=== PATIENT | female | born 1985 | race Caucasian/White ===

== ENCOUNTER 2017-05-09 15:31 | Outpatient (CLI) | payer BC | END 2017-05-09 15:32 | disposition home or self-care (01) | LOC: LABBT 15:31 | PROVIDERS: ATTEND Neurological Surgery | DX: Z01.818 Encounter for other preprocedural examination (principal); M54.12 Radiculopathy, cervical region ==

== ENCOUNTER 2017-05-16 05:40 | Day surgery (SDC) | payer BC ==
[2017-05-09 16:05] VITALS: BMI 26.6
--- NOTE | 2017-05-16 05:58 | HP ---
HISTORY OF PRESENT ILLNESS: Ms. Hernandez is a pleasant 31-year-old woman who presents for evaluation of a right C7 radiculopathy that began in mid February without any obvious inciting event. She has an M RI from [facility] that reveals superiorly migrated disk to the right at C6-C7 which fits her p athology. She was concerned over right-sided tricep and polo coach weakness that has not improved. She h as had [address] Carias, which have improved her pain tremendously. PAST MEDICAL HISTORY: Reflux, stomach ulcer. ALLERGIES: No known drug allergies. CURRENT MEDICATIONS: None. PHYSICAL EXAMINAITON: Patient is alert and oriented x3. Gait is normal, no ataxia. Upper extremit y motor exam, normal, symmetrical strength in all upper extremity movements other than the right tri cep, which grades 4/5. Reflexes are equal and present bilaterally at the biceps tendon. ASSESSMENT: Cervical radiculopathy. PLAN: I discussed the C6-C7 ACDF. Dr. Stanley met with the patient, reviewed imaging and advocated f or the same. He explained to the patient the risks, benefits, and alternatives to the procedure. T he patient expressed understanding and would like to move forward with surgery as discussed. I do b elieve the patient is mentally competent and capable of making medical decisions for herself and we will move forward with surgery as planned. Miguel Ángel Arceo PA-C dictating for Dr. Stanley.
[2017-05-16] MEDS ORDERED: Thrombin 5000 UNITS/5 ML VIAL ONE (06:39)
[2017-05-16] MEDS ORDERED: Midazolam HCl 2 mg/2 ml Vial ONE ×2 (06:40→06:54)
[2017-05-16] MEDS ORDERED: Fentanyl 250 MCG/5 ML VIAL ONE (06:54)
[2017-05-16] MEDS ORDERED: Ketorolac Tromethamine 30 MG/ML VIAL ONE (07:05)
[2017-05-16] MEDS ORDERED: Ondansetron HCl/PF 4 MG/2 ML Vial ONE ×2 (07:05→10:39)
[2017-05-16] MEDS ORDERED: Lidocaine 2% PF 10 ML AMP (For Epidural Use) ONE (07:05)
[2017-05-16] MEDS ORDERED: Propofol 200 MG/20 ML VIAL ONE (07:05)
[2017-05-16] MEDS ORDERED: Glycopyrrolate 0.2 MG/ML 5 ML SYRINGE ONE (07:05)
[2017-05-16] MEDS ORDERED: Dexamethasone 20 MG/5 ML VIAL ONE (07:05)
[2017-05-16] MEDS ORDERED: Fentanyl 100 MCG/2 ML VIAL ONE (08:40)
--- NOTE | 2017-05-16 08:53 | OP ---
DATE OF PROCEDURE: 05/16/2017 SURGEON: Ruddy Stanley M.D. MORTGAGE ASSISTANT: Miguel Ángel Arceo PA-C INDICATION: Pain. DIAGNOSIS: Cervical radiculopathy. PROCEDURE: Anterior cervical discectomy and fusion C6-7. ANESTHESIA: General. TECHNIQUE: The patient was brought into the operating room and placed under general anesthesia. Sh e was placed on the table in a supine position. A transverse incision was planned over the lateral aspect of the neck on the right. After prepping and draping and after an appropriate operative paus e, the incision was created. The underlying platysma muscle was identified and incised. A blunt ti ssue plane anterior to the sternocleidomastoid muscle was used to gain access to the prevertebral sp destiny. After identifying the appropriate level with C-arm fluoroscopy, self-retaining retractors were placed. An annulotomy was performed in the C6-7 disk space. All disk material was removed includi ng anterior and posterior osteophytes. We identified a superiorly migrated fragment behind the body of C6 on the right, which was removed. After complete decompression, a 6-mm lordotic PEEK cage pac ked with allograft and autograft material was placed within the interbody space. An anterior cervic al plate was then fashioned to the front of the spine and secured with a total of 4 fixed screws. M idline and lateral structures were inspected and found to be free from significant trauma. The woun d was irrigated. Hemostasis was maintained throughout. The wound was then closed in anatomic layer s and a pressure dressing was applied. There were no known procedural complications.
[2017-05-16] MEDS ORDERED: Acetaminophen/Codeine 30-300mg Tablet ONE (09:43)
== END 2017-05-16 11:15 | disposition home or self-care (01) ==
LOC: SDC 05:40
PROVIDERS: ATTEND Neurological Surgery
PROC: 0RG10A0 Fusion of Cervical Vertebral Joint with Interbody Fusion Device, Anterior Approach, Anterior Column, Open Approach (ICD-10-PCS; principal; 2017-05-16)
DX: M54.12 Radiculopathy, cervical region (principal); J30.2 Other seasonal allergic rhinitis; K21.9 Gastro-esophageal reflux disease without esophagitis; Z79.3 Long term (current) use of hormonal contraceptives; Z79.51 Long term (current) use of inhaled steroids; Z79.899 Other long term (current) drug therapy; Z98.818 Other dental procedure status; Z87.11 Personal history of peptic ulcer disease
CPT/HCPCS: 76001; 96374; C1713; J1100; J1885; J2001; J2250; J2405; J2704; J3010

== ENCOUNTER 2017-06-26 09:07 | Outpatient (CLI) | payer BC ==
--- NOTE | 2017-06-26 11:07 | RAD ---
CERVICAL SPINE: Three views. HISTORY: Surgical followup. The patient is post anterior fusion procedure with anterior plate and screws weber sfixing C6-7. FINDINGS: Interbody implant is present. Posterior alignment is maintained. Mild degenerative changes are otherwise noted. Mild loss of disk space at C5-6. Very mild degenerat emelyn spurring. IMPRESSION: Postoperative changes at C6-7 and mild degenerative changes as described. POS: [facility]
== END 2017-06-26 09:08 | disposition home or self-care (01) ==
LOC: TBSIIMAG 09:07
PROVIDERS: ATTEND Neurological Surgery
DX: M54.12 Radiculopathy, cervical region (principal); Z98.1 Arthrodesis status
CPT/HCPCS: 72040

== ENCOUNTER 2018-03-18 07:47 | Outpatient (CLI) | payer OTHER ==
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
== END 2018-03-18 07:48 | disposition home or self-care (01) ==
LOC: CT 07:47
PROVIDERS: ATTEND Neurological Surgery
DX: M54.12 Radiculopathy, cervical region (principal); Z98.1 Arthrodesis status
CPT/HCPCS: 72125

== ENCOUNTER 2018-12-20 17:05 | Emergency (ER) | payer OTHER ==
[2018-12-20] MEDS ORDERED: Ondansetron PF 4 MG/2 ML Vial ONE (17:11)
[2018-12-20 17:29] LABS: #Basophils 0.1 thou/uL (0.0-0.2); #Eosinphils 0.7 thou/uL (0.0-0.7); #Lymphocytes 1.9 thou/uL (1.20-3.40); #Monocytes 0.6 thou/uL (0.11-0.59); %Basophils 0.5 % (0.0-1.0); %Eosinophils 5.5 % (0.0-10.0); %Lymphocytes 15.5 % (21.0-51.0); %Monocytes 5.2 % (0.0-10.0); %Neutrophils 73.3 % (42.0-75.0); Hemoglobin 16.2 g/dL (12.0-16.0); Mean Corpuscular HGB CONC 35.3 g/dL (32.0-36.0); Mean Corpuscular Hemoglobin 31.2 pg (27.0-31.0); Mean Corpuscular Volume 88.3 fL (78.0-98.0); Platelet Count 194 thou/uL (130-400); White Blood Cell (WBC) Count 12.3 thou/uL (4.8-10.8)
[2018-12-20 17:46] LABS: ALT (SGPT) 21 U/L (8-55); AST (SGOT) 22 U/L (5-34); Albumin 4.6 g/dL (3.5-5.0); Alkaline Phosphatase 70 U/L (40-150); Anion Gap 16 mmol/L (10-20); BUN (Urea Nitrogen) 21 mg/dL (7.0-18.7); Bilirubin, Total 0.4 mg/dL (0.2-1.2); Calc. Creatinine Clearance 0 mL/min (70-130); Calcium 10.1 mg/dL (7.8-10.44); Carbon Dioxide 24 mmol/L (22-29); Chloride 104 mmol/L (98-107); Estimated GFR-MDRD 51; Globulin 3.8 g/dL (2.4-3.5); Glucose 93 mg/dL (70-105); Lipase 65 U/L (8-78); Magnesium 2.2 mg/dL (1.6-2.6); Potassium 3.9 mmol/L (3.5-5.1); Protein, Total 8.4 g/dL (6.0-8.3); Sodium 140 mmol/L (136-145)
[2018-12-20] MEDS ORDERED: Promethazine HCl 25 MG/ML VIAL ONE (17:46)
== END 2018-12-20 18:30 | disposition home or self-care (01) ==
LOC: SCSER 17:05
DX: R11.2 Nausea with vomiting, unspecified (principal); R19.7 Diarrhea, unspecified; Z79.899 Other long term (current) drug therapy
CPT/HCPCS: 80053; 83690; 83735; 85025; 96361; 96365; 96375; J2405; J2550

== ENCOUNTER 2023-12-29 16:07 | Emergency (ER) | payer OTHER | END 2023-12-29 18:04 | disposition home or self-care (01) | LOC: ERS 16:07 | DX: Z57.9 Occupational exposure to unspecified risk factor (principal) | CPT/HCPCS: 99282 ==